=== PATIENT | female | born 2000 | race Caucasian/White ===

== ENCOUNTER 2019-09-01 20:02 | Emergency (ER) | payer MEDICAID ==
[~2019-09-01] VITALS: Ht 175.3 cm; Wt 104.3 kg
[2019-09-01 20:11] VITALS: BP 135/69
--- NOTE | 2019-09-01 20:15 | NUR ---
PT AMBULATED TO BED 7 WITH STEADY GAIT
--- NOTE | 2019-09-01 20:20 | NUR ---
19 Y/O F PRESENTS TO ED C/O BACK PAIN 6/10 S/P FALL IN THE SHOWER TODAY. PT STATES THAT SHE SLIPPED IN THE SHOWER AND HIT HER BACK. PT DENIES LOC, HITTING HER HEAD. NO DEFORMITIES, ABRASIONS NOTED. PT IS 10 WEEKS . PT DENIES ANY VAGINAL BLEEDING OR PAIN ANYWHERE ELSE IN THE BODY. RR EVEN AND UNLABORED. NO ACCESSORY MUSCLE USED. LUNG SOUNDS CLEAR UPON AUSCULTATION. CAP REFILL <3 SECONDS. BED IN LOWEST POSITION, SIDE RAIL UP X1. WILL CONTINUE TO MONITOR. MHX: DENIES NKA
--- NOTE | 2019-09-01 20:27 | NUR ---
Dr. Kent examining patient.
[2019-09-01] MEDS ORDERED: ACETAMINOPHEN EXTRA STRENGTH 500 MG TAB PO ONE (20:30)
--- NOTE | 2019-09-01 20:33 | NUR ---
LABS OBTAINED AND WALKED OVER TO LAB.
--- NOTE | 2019-09-01 20:38 | NUR ---
US AT BEDSIDE.
[2019-09-01 20:50] LABS: BASOPHILS % (AUTO) 0.5 % (0.0-2.0); EOSINOPHILS % (AUTO) 0.5 % (0.0-4.0); HEMATOCRIT 37.1 % (36-48); HEMOGLOBIN 12.3 g/dL (12.0-16.0); LYMPHOCYTES # (AUTO) 2.1 K/uL (2.5-16.5); LYMPHOCYTES % (AUTO) 22.6 % (20.5-51.1); MEAN CORPUSCULAR HEMOGLOBIN 29 pg (27-31); MEAN CORPUSCULAR HGB CONC 33 g/dL (33-37); MEAN CORPUSCULAR VOLUME 88.4 fL (80-94); MONOCYTES # (AUTO) 0.5 K/uL (0.8-1.0); MONOCYTES % (AUTO) 4.9 % (1.7-9.3); NEUTROPHILS # (AUTO) 6.6 K/uL (1.8-7.7); NEUTROPHILS % (AUTO) 71.5 % (42.2-75.2); PLATELET COUNT (AUTO) 274 K/uL (140-450); RED CELL DISTRIBUTION WIDTH 13.3 % (11.6-13.7); WHITE BLOOD COUNT (AUTO) 9.2 K/uL (4.5-11.0)
--- NOTE | 2019-09-01 21:01 | NUR ---
UA OBTAINED AND WALKED OVER TO LAB.
[2019-09-01 21:02] LABS: ANION GAP 13.2 (8-16); CARBON DIOXIDE 26.5 mmol/L (21-32); CREATININE 0.7 mg/dL (0.6-1.3); POTASSIUM 3.7 mmol/L (3.5-5.1)
--- NOTE | 2019-09-01 21:02 | NUR ---
PT MOVED TO ER 5
[2019-09-01 21:07] LABS: APPEARANCE,URINE SL CLOUDY (CLEAR); BILIRUBIN,URINE NEGATIVE (NEGATIVE); BLOOD, URINE 1+ (NEGATIVE); COLOR,URINE YELLOW (YELLOW); LEUKOCYTE ESTERASE ,URINE NEGATIVE (NEGATIVE); NITRITE, URINE NEGATIVE (NEGATIVE); PH,URINE 5.5 (5.0-9.0); UGLUCOSE NEGATIVE (NEGATIVE)
[2019-09-01 21:12] LABS: RBC,URINE 11-20 (MOD) /HPF (0-5)
[2019-09-01 21:32] VITALS: BP 135/69
== END 2019-09-01 21:33 | disposition home or self-care (01) ==
LOC: MED 20:02
DX: O23.41 Unspecified infection of urinary tract in pregnancy, first trimester (principal); Z3A.10 10 weeks gestation of pregnancy
CPT/HCPCS: 36415; 76801; 80048; 81001; 84702; 85025; 86900; 86901; 87086; 99284; Q0092

== ENCOUNTER 2019-10-24 16:42 | Emergency (ER) | payer MEDICAID ==
[~2019-10-24] VITALS: Ht 170.2 cm; Wt 111.1 kg
[2019-10-24 16:46] VITALS: BP 136/68
[2019-10-24 18:00] LABS: BILIRUBIN,URINE NEGATIVE (NEGATIVE); BLOOD, URINE 1+ (NEGATIVE); LEUKOCYTE ESTERASE ,URINE NEGATIVE (NEGATIVE); NITRITE, URINE NEGATIVE (NEGATIVE); UGLUCOSE NEGATIVE (NEGATIVE)
[2019-10-24 18:05] LABS: COLOR,URINE STRAW (YELLOW)
[2019-10-24 18:09] LABS: APPEARANCE,URINE HAZY (CLEAR); RBC,URINE 0-5 /HPF (0-5); WBC,URINE 0-5 /HPF (0-5)
[2019-10-24 19:15] VITALS: BP 125/74
== END 2019-10-24 19:13 | disposition home or self-care (01) ==
LOC: MED 16:42
DX: O26.892 Other specified pregnancy related conditions, second trimester (principal); O98.812 Other maternal infectious and parasitic diseases complicating pregnancy, second trimester; R10.2 Pelvic and perineal pain; M24.20 Disorder of ligament, unspecified site
CPT/HCPCS: 76805; 81001; 81025; 87086; 99284; Q0092

== ENCOUNTER 2020-02-25 02:31 | Emergency (ER) | payer MEDICAID ==
[~2020-02-25] VITALS: Ht 175.3 cm; Wt 113.4 kg
[2020-02-25 02:50] VITALS: BP 131/79
--- NOTE | 2020-02-25 02:53 | NUR ---
TO LOBBY A/W BED AMBULATORY
[2020-02-25 04:26] VITALS: BP 131/79
--- NOTE | 2020-02-25 04:27 | NUR ---
Patient discharged with v/s stable. Written and verbal after care instructions given and explained. Patient verbalized understanding. Ambulatory with steady gait. All questions addressed prior to discharge. Advised to follow up with PMD.
== END 2020-02-25 04:27 | disposition home or self-care (01) ==
LOC: MED 02:31
DX: F41.9 Anxiety disorder, unspecified (principal)
CPT/HCPCS: 99281

== ENCOUNTER 2020-03-17 22:43 | Inpatient (IN) | payer MEDICAID, SELFPAY ==
[~2020-03-17] VITALS: Ht 175.3 cm; Wt 134.3 kg
[2020-03-18] MEDS ORDERED: CARBOPROST 250 MCG/ML AMP IM PRN (00:55)
[2020-03-18] MEDS ORDERED: ONDANSETRON 4 MG/2 ML VIAL IVP PRN (00:55)
[2020-03-18] MEDS ORDERED: OXYTOCIN 20 UNITS in LACTATED RINGERS 1,000 ML IV SCH (00:55)
[2020-03-18] MEDS ORDERED: MISOPROSTOL 25 MCG TAB VG SCH (00:55)
[2020-03-18] MEDS ORDERED: METHYLERGONOVINE 0.2 MG/ML AMP IM PRN (00:55)
[2020-03-18] MEDS ORDERED: MORPHINE SULFATE 5 MG/ML VIAL IVP PRN (00:55)
[2020-03-18] MEDS ORDERED: AMPICILLIN 2,000 MG in NACL 0.9% MINI-BAG PLUS 100 ML IV SCH (00:55)
[2020-03-18 01:55] LABS: BASOPHILS % (AUTO) 0.5 % (0.0-2.0); EOSINOPHILS # (AUTO) 0.1 K/uL (0-0.4); EOSINOPHILS % (AUTO) 1.1 % (0.0-4.0); HEMATOCRIT 33.5 % (36-48); HEMOGLOBIN 11.1 g/dL (12.0-16.0); LYMPHOCYTES # (AUTO) 2.1 K/uL (2.5-16.5); MEAN CORPUSCULAR HEMOGLOBIN 28 pg (27-31); MEAN CORPUSCULAR HGB CONC 33 g/dL (33-37); MEAN CORPUSCULAR VOLUME 83.5 fL (80-94); MONOCYTES # (AUTO) 0.5 K/uL (0.8-1.0); MONOCYTES % (AUTO) 6.4 % (1.7-9.3); NEUTROPHILS # (AUTO) 5.4 K/uL (1.8-7.7); PLATELET COUNT (AUTO) 279 K/uL (140-450); RED BLOOD CELL COUNT(AUTO) 4.01 MIL/uL (4.20-5.40); RED CELL DISTRIBUTION WIDTH 14.5 % (11.6-13.7); WHITE BLOOD COUNT (AUTO) 8.2 K/uL (4.5-11.0)
[2020-03-18 02:22] LABS: ALBUMIN 2.6 g/dL (3.4-5.0); ANION GAP 11.8 (8-16); CARBON DIOXIDE 25.1 mmol/L (21-32); CREATININE 0.6 mg/dL (0.6-1.3); POTASSIUM 3.9 mmol/L (3.5-5.1); TOTAL BILIRUBIN 0.3 mg/dL (0.0-1.0)
[2020-03-18 02:28] LABS: APPEARANCE,URINE CLEAR (CLEAR); BILIRUBIN,URINE NEGATIVE (NEGATIVE); BLOOD, URINE TRACE-I (NEGATIVE); COLOR,URINE YELLOW (YELLOW); LEUKOCYTE ESTERASE ,URINE 1+ (NEGATIVE); NITRITE, URINE NEGATIVE (NEGATIVE); UGLUCOSE NEGATIVE (NEGATIVE)
[2020-03-18] MEDS ORDERED: AMPICILLIN 2,000 MG VIAL ONE (02:33)
[2020-03-18] MEDS ORDERED: MISOPROSTOL 25 MCG TAB ONE ×2 (02:33→03:44)
[2020-03-18 02:58] VITALS: BP 125/60
[2020-03-18 04:29] LABS: RBC,URINE 0-5 /HPF (0-5)
[2020-03-18 04:30] LABS: WBC,URINE 0-5 /HPF (0-5)
[2020-03-18] MEDS ORDERED: AMPICILLIN 1,000 MG VIAL ONE ×3 (06:18→18:42)
[2020-03-18] MEDS: AMPICILLIN 1,000 MG in NACL 0.9% MINI-BAG PLUS 50 ML IV SCH ×3 (06:56→18:47)
--- NOTE | 2020-03-18 07:17 | NUR ---
PATIENT HAS BEEN SCREENED AND CATEGORIZED LOW NUTRITION RISK. PATIENT WILL BE SEEN WITHIN 7 DAYS OF ADMISSION. 03/24/20 GAURAV KRUEGER MBA, RD
[2020-03-18] MEDS ORDERED: FLUCONAZOLE 100 MG TAB PO SCH (11:00)
[2020-03-18] MEDS ORDERED: OXYTOCIN 20 UNITS/LR PREMIX 1,000 ML IV ONE (21:45)
[2020-03-19] MEDS ORDERED: AMPICILLIN 1,000 MG VIAL ONE ×4 (00:21→22:19)
[2020-03-19] MEDS: LACTATED RINGERS 1,000 ML IV SCH ×2 (02:27→21:18)
[2020-03-19] MEDS ORDERED: MORPHINE SULFATE 10 MG/ML VIAL ONE (04:40)
[2020-03-19] MEDS ORDERED: FLUCONAZOLE 100 MG TAB PO SCH (09:00)
[2020-03-19] MEDS: AMPICILLIN 1,000 MG in NACL 0.9% MINI-BAG PLUS 50 ML IV SCH ×3 (12:55→22:39)
[2020-03-19] MEDS ORDERED: ROPIVACAINE 0.2%/NS PREMIX 200 ML EPI ONE (15:01)
[2020-03-19] MEDS ORDERED: ROPIVACAINE 0.2%/NS PREMIX 100 ML EPI SCH (15:45)
[2020-03-20] MEDS ORDERED: AMPICILLIN 1,000 MG VIAL ONE (03:15)
[2020-03-20] MEDS: AMPICILLIN 1,000 MG in NACL 0.9% MINI-BAG PLUS 50 ML IV SCH (03:19)
[2020-03-20] MEDS ORDERED: DOCUSATE SODIUM 100 MG GELCAP PO PRN (04:25)
[2020-03-20] MEDS ORDERED: IBUPROFEN 800 MG TAB PO PRN (04:25)
[2020-03-20] MEDS ORDERED: METHYLERGONOVINE 0.2 MG/ML AMP IM PRN (04:25)
[2020-03-20] MEDS ORDERED: MEASLES, MUMPS, AND RUBELLA 1 VIAL SQVAC PRN (04:25)
[2020-03-20] MEDS ORDERED: SIMETHICONE 80 MG TAB.CHEW PO PRN (04:25)
[2020-03-20] MEDS ORDERED: bisacodyL 5 MG TABEC PO PRN (04:25)
[2020-03-20] MEDS ORDERED: METHYLERGONOVINE 0.2 MG TAB PO PRN (04:25)
[2020-03-20] MEDS ORDERED: BENZOCAINE/MENTHOL 20%-0.5% 60 GM CAN TP PRN (04:25)
[2020-03-20] MEDS ORDERED: OXYTOCIN 10 UNITS/ML VIAL IM PRN (04:25)
[2020-03-20] MEDS ORDERED: IBUPROFEN 600 MG TAB PO PRN (04:25)
[2020-03-20] MEDS ORDERED: FLU VACCINE QS2020-21 0.5 ML SYR IMVAC PRN (21:00)
[2020-03-21 08:48] LABS: HEMATOCRIT 31.1 % (36-48); HEMOGLOBIN 10.2 g/dL (12.0-16.0)
== END 2020-03-22 08:15 | disposition home or self-care (01) | DRG 560 ==
LOC: MLD 22:43 → MFCC 03-20 07:50
PROVIDERS: ADMIT Obstetrics & Gynecology; ATTEND Obstetrics & Gynecology
PROC: 10E0XZZ Delivery of Products of Conception, External Approach (ICD-10-PCS; principal; 2020-03-20)
PROC: 3E0R3BZ Introduction of Anesthetic Agent into Spinal Canal, Percutaneous Approach (ICD-10-PCS; 2020-03-20)
PROC: 00HU33Z Insertion of Infusion Device into Spinal Canal, Percutaneous Approach (ICD-10-PCS; 2020-03-20)
PROC: 10907ZC Drainage of Amniotic Fluid, Therapeutic from Products of Conception, Via Natural or Artificial Opening (ICD-10-PCS; 2020-03-20)
PROC: 3E0D7GC Introduction of Other Therapeutic Substance into Mouth and Pharynx, Via Natural or Artificial Opening (ICD-10-PCS; 2020-03-20)
PROC: 3E0234Z Introduction of Serum, Toxoid and Vaccine into Muscle, Percutaneous Approach (ICD-10-PCS; 2020-03-21)
DX: O99.824 Streptococcus B carrier state complicating childbirth (principal); O98.82 Other maternal infectious and parasitic diseases complicating childbirth; O99.214 Obesity complicating childbirth; O77.0 Labor and delivery complicated by meconium in amniotic fluid; O69.81X0 Labor and delivery complicated by cord around neck, without compression, not applicable or unspecified; E66.9 Obesity, unspecified; Z20.822 Contact with and (suspected) exposure to COVID-19; B37.3 Candidiasis of vulva and vagina; O99.02 Anemia complicating childbirth; D64.9 Anemia, unspecified; Z37.0 Single live birth; Z23 Encounter for immunization; Z3A.39 39 weeks gestation of pregnancy; Z83.3 Family history of diabetes mellitus
CPT/HCPCS: 36415; 51702; 59200; 59409; 76815; 80053; 81001; 85018; 85025; 86592; 86886; 86900; 86901; 87086; 90715; J0290; J2270; J2405; J2590; J2795; J7120